=== PATIENT | female | born 2000 | race Caucasian/White ===

== ENCOUNTER 2019-07-02 21:42 | Emergency (ER) | payer OTHER ==
[~2019-07-02] VITALS: Ht 170.2 cm; Wt 63.6 kg
[2019-07-02 21:53] VITALS: BP 156/91; TEMP 98
[2019-07-03 00:55] VITALS: PULSE 75
== END 2019-07-03 00:55 | disposition home or self-care (01) ==
LOC: COL.ER 21:42
DX: G43.909 Migraine, unspecified, not intractable, without status migrainosus (principal)
CPT/HCPCS: J1200; J1885; J2765; J7030